=== PATIENT | male | born 1975 | race Two or more races ===

== ENCOUNTER 2018-09-27 00:14 | Emergency (ER) | payer OTHER ==
[~2018-09-27] VITALS: Ht 175.3 cm; Wt 97.1 kg
[2018-09-27 00:35] VITALS: BP 187/115
--- NOTE | 2018-09-27 02:00 | RAD ---
PQRS Compliance Statement: One or more of the following individualized dose reduction techniques were utilized for this examination: 1. Automated exposure control 2. Adjustment of the mA and/or kV according to patient size 3. Use of iterative reconstruction technique CT HEAD AND MAXILLOFACIAL WITHOUT CONTRAST History: Fall out of bed, right eye swelling, bruised. Comparison: None. Procedure: Axial images are obtained of the head from the skull base through the vertex without IV contrast. Helical CT imaging of the facial bones is performed without IV contrast. Findings: The ventricles and sulci are normal for the patient's age. No mass-effect, midline shift, hemorrhage or obvious acute infarction is identified. Basilar cisterns are patent. Bone windows demonstrate no significant calvarial abnormality. No acute facial bone fracture. The bony nasal septum is midline. Bilateral ostiomeatal complexes are partially opacified. The orbital floors are intact. The globes and orbits are intact. There is mild soft tissue swelling lateral to the right orbit. Upper cervical spine alignment is maintained. The right maxillary sinus is nearly completely opacified. Mucosal thickening left maxillary, right frontal, left sphenoid, and bilateral ethmoid sinuses..Mastoid air cells are well aerated. IMPRESSION: 1. No acute intracranial abnormality. 2. No acute facial bone fracture. 3. Globes and orbits are intact. 4. Paranasal sinus disease. Electronically signed by: Javid Ga MD (09/27/2018 1:57 AM) [facility]
--- NOTE | 2018-09-27 02:19 | PHYS DOC ---
Past Medical History Past Medical History: Hypertension Past Surgical History: No Surgical History Alcohol Use: Occasionally Drug Use: None Adult General Chief Complaint Chief Complaint: LACERATION/AVULSION HPI HPI Patient is a 43-year-old male who presents after reportedly having a fainting spell. Patient states that he was having a coughing spell and he went to reach over to get his bottle of water and the next thing he knew he was waking up on the floor. Patient had fallen, striking his head just lateral to the right eye. Patient has laceration just lateral to the eye. He does admit to a headache that he rates at a 6 out of 10. He denies any nausea or vomiting. He denies any chest pain or shortness of breath.[] Review of Systems Review of Systems Constitutional: Denies fever or chills [] Eyes: Denies change in visual acuity, redness, or eye pain [] Respiratory: Denies cough or shortness of breath [] Cardiovascular: No additional information not addressed in HPI [] Integument: Positive laceration[] Neurologic: Complains of headache without focal weakness or sensory changes [] Current Medications Current Medications Current Medications Medications (Trade) Dose Ordered Sig/[place] Start Time Stop Time Status Last Admin Dose Admin Acetaminophen/ Hydrocodone Bitart (Lortab 7.5/325) 1 tab 1X ONCE 09/27/18 02:45 09/27/18 02:46 DC 09/27/18 02:51 1 TAB Allergies Allergies Allergies Coded Allergies Type Severity Reaction Last Updated Verified No Known Drug Allergies 09/27/18 No Physical Exam Physical Exam Constitutional: Well developed, well nourished, no acute distress, non-toxic appearance. [] HENT: Normocephalic, with ecchymosis around the right eye and one similar laceration just lateral to the eye, extending into subcutaneous tissue with sharp margins. [] Eyes: PERRLA, EOMI, conjunctiva normal, no discharge. [] Neck: Normal range of motion, no tenderness, supple, no stridor. [] Cardiovascular: Regular rate and rhythm[] Lungs & Thorax: Bilateral breath sounds clear to auscultation [] Current Patient Data Vital Signs Vital Signs Date Time Temp Pulse Resp B/P (MAP) Pulse Ox O2 Delivery O2 Flow Rate FiO2 09/27/18 00:35 97.9 85 20 187/115 (139) 98 Room Air 97.9 EKG EKG [] Interpretation Time: EKG demonstrates normal sinus rhythm with no ST segment abnormalities. Radiology/Procedures Radiology/Procedures [] Course & Med Decision Making Course & Med Decision Making Pertinent Labs and Imaging studies reviewed. (See chart for details) Laceration Repair by me: Anesthesia: None Location: Lateral to right eyelid Tendon/Joint/Nerves: No injury Foreign body: None detected after copious irrigation and exploration Technique: Dermabond Complexity: No subcutaneous sutures/mucosal repair/edge excision Post Closure Length: 1 cm Patient's bleeding was easily controlled in the department and there is no indication of anemia. No evidence of compartment syndrome, neurologic injury, vascular injury, open joint, tendon laceration, or foreign body. Patient is appropriate for outpatient follow up. 48 hour wound check. Scar minimization instructions given. Dragon Disclaimer Dragon Disclaimer This electronic medical record was generated, in whole or in part, using a voice recognition dictation system. Departure Departure Impression: Primary Impression: Syncope, vasovagal Additional Impression: Facial laceration Disposition: 01 HOME, SELF-CARE Condition: STABLE Referrals: NO PCP (PCP) Patient Instructions: Facial Laceration, Syncope Scripts Hydrocodone/Apap 5-325 (NORCO 5-325 TABLET) 1 Each Tablet 1-2 EACH PO PRN Q6HRS PRN for PAIN, #15 as needed for pain Prov: PASTOR WOOD Jr. DO 09/27/18 Problem Qualifiers Additional Impression: Facial laceration Encounter type: initial encounter Qualified Codes: S01.81XA - Laceration without foreign body of other part of head, initial encounter PASTOR WOOD Jr. DO Sep 27, 2018 02:19
[2018-09-27] MEDS ORDERED: HYDR-3164 PO (02:36)
[2018-09-27] MEDS ORDERED: HYDROcodone/APAP 7.5/325MG 1 TAB TABLET PO ONE (02:45)
--- NOTE | 2018-09-27 14:00 | EKG ---
[facility] [address] [place] [address] Test Date: 2018-09-27 Test Time: 00:55:52 Pat Name: RYAN HOFFMAN Department: Room: Gender: M [employer]: : 1975 Requested By: PASTOR WOOD Order Number: [id number] Reading MD: Measurements Intervals [place] Rate: 82 P: 29 ME: 140 QRS: 45 QRSD: 88 T: 14 QT: 350 QTc: 411 Interpretive Statements SINUS RHYTHM NON SPECIFIC ST-T ABNORMALITY (ELEVATION) OTHERWISE NORMAL ECG No previous ECG available for comparison
== END 2018-09-27 02:50 | disposition home or self-care (01) ==
LOC: ER 00:14
DX: S01.111A Laceration without foreign body of right eyelid and periocular area, initial encounter (principal); R55 Syncope and collapse; I10 Essential (primary) hypertension; W18.09XA Striking against other object with subsequent fall, initial encounter; Y93.89 Activity, other specified; Y92.89 Other specified places as the place of occurrence of the external cause; Y99.8 Other external cause status
CPT/HCPCS: 12011; 70450; 70486; 93005; 99284